=== PATIENT | male | born 1945 | race Caucasian/White ===

== ENCOUNTER → 2016-10-22 | Outpatient (CLI) | payer OTHER, MEDICARE | LOC: BHFA 08:30 | PROVIDERS: ATTEND Internal Medicine Cardiovascular Disease | DX: I25.10 Atherosclerotic heart disease of native coronary artery without angina pectoris (principal); I50.9 Heart failure, unspecified ==

== ENCOUNTER → 2016-11-26 | Outpatient (CLI) | payer OTHER, MEDICARE | LOC: BHFA 13:30 | PROVIDERS: ATTEND Internal Medicine Cardiovascular Disease | DX: I42.9 Cardiomyopathy, unspecified (principal); Z95.810 Presence of automatic (implantable) cardiac defibrillator ==

== ENCOUNTER 2016-12-15 11:00 | Observation (INO) | payer OTHER, MEDICARE ==
[2016-12-15] MEDS ORDERED: MIDAZOLAM 2 MG/2 ML VIAL IVP ONE (11:12)
[2016-12-15] MEDS ORDERED: NS 1,000 ML IV ONE (11:12)
--- NOTE | 2016-12-15 11:40 | CPEKG ---
Heart Rate: 69 RR Interval: 870 P-R Interval: 180 QRSD Interval: 128 QT Interval: 448 QTC Interval: 480 P [place]: -32 QRS [place]: -81 T Wave [place]: 86 EKG Severity - ABNORMAL ECG - EKG Impression: ATRIAL-SENSED VENTRICULAR-PACED RHYTHM Electronically Signed By: Cale Alamo 15-Dec-2016 11:50:31
[2016-12-15 11:59] LABS: % IMMATURE GRANULYOCYTES 0.3 % (0.0-1.1); ABSOLUTE IMMATURE GRANULOCYTES 0.02 10^3/uL (0.00-0.10); ADD DIFF? NO; ADD MORPH? NO; ADD SCAN? NO; ATYPICAL LYMPHOCYTE FLAG 50 (0-99); FRAGMENT RBC FLAG 0 (0-99); HEMATOCRIT 44.7 % (40.0-51.0); HEMOGLOBIN 14.1 g/dL (13.7-17.5); LEFT SHIFT FLG 0 (0-99); LIPEMIA HEMOLYSIS FLAG 80 (0-99); MEAN CELL HEMOGLOBIN 30.2 pg (27.9-34.1); MEAN CELL HEMOGLOBIN CONCENTR. 31.5 g/dL (32.4-36.7); MEAN CELL VOLUME 95.7 fL (81.5-99.8); MEAN PLATELET VOLUME 9.8 fL (8.7-11.7); PLATELET CLUMPS FLAG 0 (0-99); PLATELET COUNT 191 10^3/uL (150-400); RED BLOOD CELL COUNT 4.67 10^6/uL (4.40-6.38); RED CELL DISTRIBUTION WIDTH 13.9 % (11.5-15.2)
[2016-12-15 12:08] LABS: APTT 30.1 SEC (23.0-38.0); INR 1.15 (0.83-1.16); PROTIME(PATIENT) 14.6 SEC (12.0-15.0)
[2016-12-15 12:17] LABS: ANION GAP 12 mEq/L (8-16); CARBON DIOXIDE 28 mEq/l (22-31); CHLORIDE 101 mEq/L (97-110); CREATININE 1.6 mg/dL (0.7-1.3); GLOMERULAR FILTRATION RATE 43; GLUCOSE 101 mg/dL (70-100); POTASSIUM 4.2 mEq/L (3.5-5.2); SODIUM 141 mEq/L (134-144)
[2016-12-15] MEDS ORDERED: ROCURONIUM 100 MG/10 ML VIAL ONE (12:33)
[2016-12-15] MEDS ORDERED: PROPOFOL 200 MG/20 ML VIAL ONE (12:33)
[2016-12-15] MEDS ORDERED: fentaNYL 100 MCG/2 ML INJ ONE (12:33)
[2016-12-15] MEDS ORDERED: PHENYLEPHRINE HCL 100 MCG/ML SYR ONE (12:33)
[2016-12-15] MEDS ORDERED: LIDOCAINE 1% 300 MG/30 ML SDV ONE (12:35)
[2016-12-15] MEDS ORDERED: BUPIVACAINE 0.5% 30 ML SDV ONE (12:35)
[2016-12-15] MEDS ORDERED: HEPARIN 10,000 UNIT/10 ML MDV ONE ×2 (12:35→14:28)
[2016-12-15] MEDS ORDERED: ISOPROTERENOL HCL 0.2 MG/ML 5ML AMP ONE (12:35)
[2016-12-15] MEDS ORDERED: HEPARIN/DEXTROSE 25,000 UNIT/500 ML BAG ONE (13:33)
[2016-12-15] MEDS ORDERED: PHENYLEPHRINE 10 MG/ML SDV ONE (13:50)
[2016-12-15] MEDS ORDERED: ONDANSETRON 4 MG/2 ML VIAL ONE (17:10)
[2016-12-15] MEDS ORDERED: SUGAMMADEX SODIUM 200 MG/2 ML VIAL IVP ONE (17:10)
[2016-12-15] MEDS ORDERED: PROTAMINE SULFATE 50 MG/5 ML VIAL IVP ONE (17:19)
[2016-12-15] MEDS ORDERED: METOPROLOL TARTRATE 5 MG/5 ML INJ ONE (17:48)
[2016-12-15] MEDS ORDERED: ONDANSETRON 4 MG/2 ML VIAL IVP PRN (17:53)
[2016-12-15] MEDS ORDERED: METOPROLOL TARTRATE 5 MG/5 ML INJ IVP ONE (17:53)
[2016-12-15] MEDS ORDERED: fentaNYL 100 MCG/2 ML INJ IVP PRN (17:53)
[2016-12-15] MEDS ORDERED: NALOXONE HCL 0.4 MG/ML INJ IVP PRN (17:53)
[2016-12-15 19:08] LABS: ALANINE AMINOTRANSFERASE 23 IU/L (21-72); ALBUMIN 3.5 g/dL (3.5-5.0); ALKALINE PHOSPHATASE 58 IU/L (38-126); ANION GAP 10 mEq/L (8-16); ASPARTATE AMINOTRANSFERASE 60 IU/L (17-59); CALCIUM 8.3 mg/dL (8.5-10.4); CARBON DIOXIDE 25 mEq/l (22-31); CHLORIDE 106 mEq/L (97-110); CREATININE 1.5 mg/dL (0.7-1.3); GLOMERULAR FILTRATION RATE 46; GLUCOSE 93 mg/dL (70-100); POTASSIUM 4.1 mEq/L (3.5-5.2); SODIUM 141 mEq/L (134-144); TOTAL PROTEIN 7.9 g/dL (6.3-8.2)
[2016-12-15] MEDS ORDERED: ACETAMINOPHEN 325 MG TAB PO PRN (19:20)
[2016-12-15] MEDS ORDERED: OXYCODONE/APAP 5/325 TAB PO PRN (19:20)
--- NOTE | 2016-12-15 19:43 | EPPROC ---
Electrophysiology Procedure Note: ELECTROPHYSIOLOGIC STUDY AND CATHETER MEDIATED ABLATION OF SCAR ASSOCIATED VT Procedures performed: 31627 Arterial catheterization for monitoring during procedure 27780-01 EP evaluation with RA/RV/LA pace/record, with arrhythmia induction 50854-27 EP evaluation with RA/RV pace record, insert/reposition catheter, with arrhythmia induction 37231 Intracardiac catheter ablation, VT arrhythmogenic focus Fluoroscopy Reprogramming of BiV chamber ICD INDICATION: Sustained VT, ICD shocks x 2 Prior ablation at our institution in 11/2014 Cannot use amiodarone due to LFT elevation. Cannot use sotalol/dofetilide due to renal dysfunction. Flecainide ineffective. The patient arrived in the Electrophysiology Laboratory in the fasting state. The right clavicular region, right groin, and left groin area were prepped and draped in the usual sterile manner. Appropriate non-invasive blood pressure, pulse oximetry and end-tidal CO2 monitoring was established. Anesthesiologist administered anesthesia. All catheters were placed percutaneously using the modified Seldinger technique , and advanced into position under fluoroscopic guidance. One #8 [place] sheath was placed into the right femoral artery using modified Seldinger technique and was used for continuous arterial blood pressure monitoring and intermittent arterial blood gas determination and for retro aortic left ventricular access. Heparin was given to keep ACT >300 s. Programmed stimulation was performed. ICD therapies were programmed to off for the duration of the procedure . Post ablation he had upgrade to BiV ICD and ICD therapies were confirmed programmed on at end of procedure. This has been dictated separately. The patient arrived to the electrophysiology laboratory in A paced V paced rhythm. Programmed ventricular stimulation induced the following ventricular tachycardias: VT#1 CL 320 ms, V1-V5 positive, V6 biphasic, + in 2,3,F, + in I, - in aVL VT#2 CL 280 ms, + in I, - in aVL, QRS transition b.w. V2-V3, c.w. left outflow tract VT SBP decreased to 40mmHg on arterial line with VT and VT required defibrillation. A 3.5 mm irrigated Navistar SF ablation catheter (F curve) with a magnetic sensor for the Carto 3D electroanatomic mapping system was used for mapping. Pentaray catheter was also used. High resolution voltage mapping of the LV during sinus rhythm was undertaken. Low voltage areas were seen in the basal LV along anterolateral and lateral cruz. Ablation was limited to LV scar areas targeting early and mid diastolic potentials seen within the discrete scar. Scar was also seen along the distal LV outflow tract just under the aortic valve. Early and mid diastolic potentials were seen. Ablation was performed in this area as well. Pace mapping in this area was a 93-95% match for VT#2. Post ablation programmed stimulation was not done due to hemodynamic compromise with prior 2 episodes of VT. Protamine was administered. Arterial puncture was repaired with Angioseal. Patient left the EP lab in stable condition. CONCLUSIONS: 1. Scar related ventricular tachycardia. Non ischemic cardiomyopathy out of proportion to prior LAD stent. 2. Ablation along the basal left ventricle lateral and anterolateral areas, distal LV outflow tract just underneath aortic valve (left coronary cusp). 3. No apparent complications.
--- NOTE | 2016-12-15 20:19 | GOP ---
[f rep st] OPERATIVE REPORT DATE OF OPERATION: 12/15/2016 SURGEON: Med Ojeda MD ANESTHESIA: None. PREOPERATIVE DIAGNOSIS: Urinary retention. POSTOPERATIVE DIAGNOSIS: Urinary retention. PROCEDURE PERFORMED: Complicated catheter insertion. FINDINGS: INDICATIONS: The patient had a history of voiding dysfunction, especially around the time of proced ures. Two catheterization attempts by nursing staff were unsuccessful. Therefore, Urology was cons ulted. DESCRIPTION OF PROCEDURE: At the bedside, the penis was prepped and draped in a sterile fashion. A n 18-Greenlandic Coude catheter was guided with palpating any obstructions and maneuvering around them to successfully insert the catheter into the bladder. The urine was clear. 10 cc were placed in the balloon. The catheter was placed to a bedside bag. The plan will be for the patient to go home with this catheter and follow up with me as an outpatien t. COMPLICATIONS: None. DRAINS: 18-Greenlandic Coude catheter. /[id number]/MODL
[2016-12-15] MEDS ORDERED: NON-FORMULARY NEW DRUG (Ranitidine Hcl [Zantac] 150 MG) PO SCH (21:00)
[2016-12-15] MEDS ORDERED: PRAVASTATIN SODIUM 20 MG TAB PO SCH (21:00)
[2016-12-15 21:03] LABS: ANION GAP 8 mEq/L (8-16); CALCIUM 8.6 mg/dL (8.5-10.4); CARBON DIOXIDE 27 mEq/l (22-31); CHLORIDE 107 mEq/L (97-110); CREATININE 1.5 mg/dL (0.7-1.3); GLOMERULAR FILTRATION RATE 46; GLUCOSE 111 mg/dL (70-100); MAGNESIUM 1.9 mg/dL (1.6-2.3); POTASSIUM 4.3 mEq/L (3.5-5.2); SODIUM 142 mEq/L (134-144)
[2016-12-15] MEDS: CLOTRIMAZOLE 10 MG TROCHE PO SCH (21:35)
[2016-12-15] MEDS: FAMOTIDINE 20 MG TAB PO SCH (21:35)
[2016-12-15] MEDS: MEXILETINE HCL 200 MG CAP PO SCH (21:35)
[2016-12-16] MEDS ORDERED: CARVEDILOL 6.25 MG TAB PO ONE
[2016-12-16 04:55] LABS: % IMMATURE GRANULYOCYTES 0.3 % (0.0-1.1); ABSOLUTE IMMATURE GRANULOCYTES 0.02 10^3/uL (0.00-0.10); ADD DIFF? NO; ADD MORPH? NO; ADD SCAN? NO; ATYPICAL LYMPHOCYTE FLAG 30 (0-99); FRAGMENT RBC FLAG 0 (0-99); HEMATOCRIT 39.8 % (40.0-51.0); HEMOGLOBIN 12.6 g/dL (13.7-17.5); LEFT SHIFT FLG 0 (0-99); LIPEMIA HEMOLYSIS FLAG 80 (0-99); MEAN CELL HEMOGLOBIN 30.1 pg (27.9-34.1); MEAN CELL HEMOGLOBIN CONCENTR. 31.7 g/dL (32.4-36.7); MEAN PLATELET VOLUME 9.9 fL (8.7-11.7); PLATELET CLUMPS FLAG 0 (0-99); PLATELET COUNT 158 10^3/uL (150-400); RED BLOOD CELL COUNT 4.19 10^6/uL (4.40-6.38); RED CELL DISTRIBUTION WIDTH 13.9 % (11.5-15.2)
[2016-12-16 04:59] LABS: INR 1.21 (0.83-1.16); PROTIME(PATIENT) 15.3 SEC (12.0-15.0)
[2016-12-16 05:28] LABS: ANION GAP 7 mEq/L (8-16); CALCIUM 8.4 mg/dL (8.5-10.4); CARBON DIOXIDE 27 mEq/l (22-31); CHLORIDE 107 mEq/L (97-110); CREATININE 1.4 mg/dL (0.7-1.3); GLOMERULAR FILTRATION RATE 50; GLUCOSE 92 mg/dL (70-100); POTASSIUM 4.5 mEq/L (3.5-5.2); SODIUM 141 mEq/L (134-144)
[2016-12-16 05:40] LABS: CK-MB INTERPRETATION POSITIVE (NEGATIVE)
[2016-12-16] MEDS ORDERED: LEVOTHYROXINE 125 MCG TAB PO SCH (06:00)
[2016-12-16] MEDS: MEXILETINE HCL 200 MG CAP PO SCH (06:22)
[2016-12-16] MEDS: CLOTRIMAZOLE 10 MG TROCHE PO SCH ×2 (06:23→09:14)
[2016-12-16 07:44] VITALS: TEMP 98.6
[2016-12-16] MEDS ORDERED: CARVEDILOL 6.25 MG TAB PO SCH (08:00)
[2016-12-16] MEDS: FAMOTIDINE 20 MG TAB PO SCH (08:40)
--- NOTE | 2016-12-16 08:47 | CPEKG ---
Heart Rate: 60 RR Interval: 1000 P-R Interval: 176 QRSD Interval: 134 QT Interval: 472 QTC Interval: 472 P [place]: -41 QRS [place]: -79 T Wave [place]: 92 EKG Severity - ABNORMAL ECG - EKG Impression: ATRIAL-SENSED VENTRICULAR-PACED COMPLEXES Electronically Signed By: Cale Alamo 16-Dec-2016 09:05:32
[2016-12-16] MEDS ORDERED: LISINOPRIL 5 MG TAB PO SCH (09:00)
[2016-12-16] MEDS ORDERED: CHOLECALCIFEROL VIT D3 1,000 UNITS TAB PO SCH (09:00)
[2016-12-16] MEDS ORDERED: ASPIRIN 325 MG TAB PO SCH (09:00)
[2016-12-16 09:16] VITALS: PULSE 61
--- NOTE | 2016-12-16 09:25 | ECHO ---
[id number] + + [id number] : : [place] [address] : : [phone] + + Adult Echocardiographic Report + ----+ :Name: WALTER MASTERS RStudy Date: 12/16/2016 07:50 AM : : Hospital Admission Number: [id number] Location: 255: :: 1945 Gender: Male Height: 72 in : :Age: 71 yrs Race: WH Weight: 175 lb : :Reason For Study: Eval LV Fx : : BSA: 2.0 meters2 : :History: Post Ablation, Pacemaker : + ----+ MMode/2D Measurements \T\ Calculations IVSd: 1.2 cm LVIDd: 6.1 cm FS: 15.6 % Ao root diam: LVPWd: 1.2 cm LVIDs: 5.1 cm EDV(Teich): 3.1 cm 185.2 ml ACS: 2.2 cm ESV(Teich): 125.4 ml EF(Teich): 32.3 % LVLd ap4: 8.8 cm SV(MOD-sp4): EDV(MOD-sp4): 54.0 ml 130.0 ml LVLs ap4: 7.8 cm ESV(MOD-sp4): 76.0 ml EF(MOD-sp4): 41.5 % Normal Measurement Values: + + :LVIDd (3.5-5.7cm) IVSd (0.6-1.1cm) LVPWd (0.6-1.1cm) Aortic Root (2.0-3.7cm)Left Atrium (1.5-4.0cm): :LV Vol(d) (76-115ml) LV Vol(s) (29-48ml) Ejec Fraction (50-65%)PV Clarence (0.6- 1.2m/s) TV Clarence (0.4-1.0m/s) : :MV E Clarence (0.8-1.0m/s)MV A Clarence (0.3-1.0m/s)LVOT Clarence (0.7-1.2m/s) Asc Ao Clarence ( 0.9-1.8m/s) : + + Doppler Measurements \T\ Calculations MV E max clarence: Ao V2 max: AI max clarence: LV V1 max: 39.5 cm/sec 100.4 cm/sec 270.1 cm/sec 65.6 cm/sec MV A max clarence: Ao max PG: AI max P.7 mmHg LV V1 max P.3 cm/sec 4.0 mmHg AI dec slope: 1.7 mmHg MV E/A: 0.70 124.3 cm/sec2 AI P1/2t: 636.4 msec MR max clarence: PA V2 max: TR max clarence: 297.9 cm/sec 73.3 cm/sec 301.3 cm/sec MR max PG: PA max PG: TR max P.3 mmHg 35.6 mmHg 2.1 mmHg RAP systole: 5.0 mmHg RVSP(TR): 41.3 mmHg Left Ventricle The left ventricle is mildly dilated. There is normal left ventricular wall thickness. There is Doppler evidence for diastolic dysfunction. Ejection Fraction = 40%. There is basilar inferolateral and basialr to mid inferior hypokinesis. Right Ventricle There is a pacemaker lead in the right ventricle. The right ventricle is normal in size and function. Atria The left atrial size is normal. Right atrial size is normal. Mitral Valve The mitral valve is normal. There is no evidence of mitral valve prolapse. There is no mitral valve stenosis. There is mild mitral regurgitation. Tricuspid Valve Normal tricuspid valve. Right ventricular systolic pressure is 41mmHg. There is Doppler evidence for mild pulmonary hypertension. Aortic Valve There is mild aortic valve calcification. There is no aortic stenosis. Trace to mild aortic regurgitation. Pulmonic Valve The pulmonic valve is normal in structure and function. There is no pulmonic valvular regurgitation. Great Vessels The aortic root is normal size. Pericardium/Pleural There is no pericardial effusion. Conclusion A complete two-dimensional transthoracic echocardiogram was performed (2D, M-mode, Doppler and color flow Doppler). The left ventricle is mildly dilated. There is Doppler evidence for diastolic dysfunction. There is basilar inferolateral and basialr to mid inferior hypokinesis. There is a pacemaker lead in the right ventricle. The mitral valve is normal. There is mild mitral regurgitation. Right ventricular systolic pressure is 41mmHg. There is Doppler evidence for mild pulmonary hypertension. There is mild aortic valve calcification. Trace to mild aortic regurgitation. There is no pericardial effusion. LV Ejection Fraction = 40%. Final Reading Physician: Cale Alamo MD electronically signed on 12/16/2016 09:24 AM Ordering Physician: Cale Alamo Performed By: Jakub Green, CS
[2016-12-16] MEDS ORDERED: APIXABAN 2.5 MG TAB PO SCH (09:45)
[2016-12-16 10:08] VITALS: BP 129/63; RESP 12; O2SAT 97
--- NOTE | 2016-12-17 00:08 | GDS ---
[f rep st] DISCHARGE SUMMARY DISCHARGE DIAGNOSES: 1. Nonischemic cardiomyopathy. 2. Biventricular ICD. 3. Nonsustained ventricular tachycardia. 4. Pulmonary hypertension. 5. Valvular heart disease. 6. Coronary artery disease. BRIEF HISTORY: This is a 71-year-old man with history of nonischemic cardiomyopathy with prior EF of 30% and previous biventricular ICD implanted, pulmonary hypertension, CAD prior LAD stent in 2003, moderate MR and TR, prior VT ablation November 2014. He has experienced recurrent VT with subsequent ICD shocks. He was already taking mexiletine and cannot take amiodarone due to elevated LFTs. He was admitted for VT ablation. He did hold his mexiletine 2 days prior to the EP study. HOSPITAL COURSE: Dr. Alamo performed the VT ablation along the basal left ventricular lateral and anterior lateral areas, distal LV outflow track just underneath the aortic valve. The patient did well overnight without any further VT. He denies any kind of chest pain, shortness of breath, or pain at his groin sites. HOSPITAL TESTING: Echocardiogram demonstrated mild MR, trace to mild AI, RVSP of 41 mmHg, ejection fraction 40%, and no pericardial effusion. LABORATORY DATA: WBC is 6.89, hemoglobin 12.6, hematocrit 39.8, platelets 158. PT 15.3, INR 1.21. Sodium 141, potassium 4.5, chloride 107, bicarb 27, BUN 22 , creatinine 1.4, glucose 92. CK-MB 16.5, CK-MB percent 11.3, troponin 4.35. PHYSICAL EXAMINATION: VITAL SIGNS: Blood pressure is 129/63, heart rate is 61 , respirations 12, temperature 37, O2 saturation 97% on room air. GENERAL: He is alert and oriented, in no acute distress, sitting up in bed. CARDIAC: Regular rate and rhythm with a 1/6 systolic ejection murmur at the left sternal border. LUNGS: Clear to auscultation. ABDOMEN: Soft and nontender. EXTREMITIES: Warm. No discoloration. No lower extremity edema. GROIN: Sites are without bleeding or hematoma. DISCHARGE INSTRUCTIONS: Patient was given written and verbal instructions with activity restrictions post ablation. DISCHARGE MEDICATIONS: He will continue his home medications. Of note, Eliquis 2.5 mg p.o. b.i.d. was added. He was instructed to take this for 1 month post ablation. He will continue his aspirin due to his coronary disease. FOLLOWUP: He has followup with Dr. Alamo on January 28 at 4 o'clock. /[id number]/MODL MTDD
[2016-12-17] MEDS ORDERED: FUROSEMIDE 20 MG TAB PO SCH (09:00)
== END 2016-12-16 11:23 | disposition home or self-care (01) ==
LOC: FCATH 11:00 → F2N 17:45 → INTOOBSV 17:45
PROVIDERS: ADMIT Internal Medicine Cardiovascular Disease; ATTEND Internal Medicine Cardiovascular Disease
PROC: 02JA3ZZ Inspection of Heart, Percutaneous Approach (ICD-10-PCS; principal; 2016-12-15)
PROC: 025L3ZZ Destruction of Left Ventricle, Percutaneous Approach (ICD-10-PCS; principal; 2016-12-15)
PROC: 02K83ZZ Map Conduction Mechanism, Percutaneous Approach (ICD-10-PCS; principal; 2016-12-15)
PROC: 0T9B70Z Drainage of Bladder with Drainage Device, Via Natural or Artificial Opening (ICD-10-PCS; 2016-12-15)
DX: I47.2 Ventricular tachycardia (principal); I42.9 Cardiomyopathy, unspecified; I27.2 Other secondary pulmonary hypertension; I25.10 Atherosclerotic heart disease of native coronary artery without angina pectoris; I08.1 Rheumatic disorders of both mitral and tricuspid valves; R33.9 Retention of urine, unspecified; Z95.5 Presence of coronary angioplasty implant and graft; Z95.810 Presence of automatic (implantable) cardiac defibrillator
CPT/HCPCS: 93005; 93306; 93654; C1731; C1732; C1760; J1644; J2370; J2405; J2704; J2720; J3010

== ENCOUNTER → 2017-01-28 | Outpatient (CLI) | payer OTHER, MEDICARE | LOC: BHFA 16:00 | PROVIDERS: ATTEND Internal Medicine Cardiovascular Disease | DX: I42.9 Cardiomyopathy, unspecified (principal); I47.2 Ventricular tachycardia; Z95.810 Presence of automatic (implantable) cardiac defibrillator ==

== ENCOUNTER 2017-02-05 07:10 | Day surgery (SDC) | payer OTHER, MEDICARE ==
--- NOTE | 2017-02-05 07:48 | PDGENHP ---
History & Physical Chief Complaint: dysphagia, hx of tongue radiation History of Present Illness: dysphagia, previous response to dilation Pertinent Past, Social, Family History: VTach Relevant Physical Exam: NAD Cardiorespiratory Assessment: ctab. normal rate
[2017-02-05] MEDS ORDERED: LR 1,000 ML IV ONE (07:52)
[2017-02-05 08:17] VITALS: PULSE 69; RESP 16
[2017-02-05 08:37] LABS: ANION GAP 9 mEq/L (8-16); CALCIUM 8.9 mg/dL (8.5-10.4); CARBON DIOXIDE 27 mEq/l (22-31); CHLORIDE 103 mEq/L (97-110); CREATININE 1.7 mg/dL (0.7-1.3); GLOMERULAR FILTRATION RATE 40; GLUCOSE 104 mg/dL (70-100); POTASSIUM 4.1 mEq/L (3.5-5.2); SODIUM 139 mEq/L (134-144)
--- NOTE | 2017-02-05 08:42 | PDANEPAE ---
ANE History of Present Illness barrets esophagus ANE Past Medical History - Cardiovascular History Hx Hypertension: Yes Hx Arrhythmias: Yes Hx Chest Pain: No Hx Coronary Artery / Peripheral Vascular Disease: Yes Hx CHF / Valvular Disease: No Hx Palpitations: No Cardiovascular History Comment: hx of vtach- killed him 2009. hyperlipidemia - Pulmonary History Hx COPD: No Hx Asthma/Reactive Airway Disease: No Hx Recent Upper Respiratory Infection: No Hx Oxygen in Use at Home: Yes O2 in Use at Home (L/minute): 2l at noc Hx Sleep Apnea: Yes Sleep Apnea Screening Result - Last Documented: Positive Pulmonary History Comment: central sleep apnea. current cough with some blood tinged sputum - Neurologic History Hx Cerebrovascular Accident: No Hx Seizures: No Hx Dementia: No - Endocrine History Hx Diabetes: No Endocrine History Comment: hypothyroidism - Renal History Hx Renal Disorders: Yes Renal History Comment: hx of right nephrectomy. UDS procedure done 02/03/17. recently taken off furosemide d/t creatinine levels. enlarged prostate. urinary retention d/t increase in creatinine - Liver History Hx Hepatic Disorders: No - Neurological & Psychiatric Hx Hx Neurological and Psychiatric Disorders: No - Cancer History Hx Cancer: Yes Cancer History Comment: tongue ca- chemo, radiation and feeding tube placed. renal ca- with nephrectomy - Congenital Disorder History Hx Congenital Disorders: No - GI History Hx Gastrointestinal Disorders: Yes Gastrointestinal History Comment: reflux. barretts esophagus. throat is sore currently - Other Health History Other Health History: wears glasses. sun spots- pattern molder removes - Chronic Pain History Chronic Pain: No - Surgical History Prior Surgeries: 2017 cardiac ablation. 2016 cardiac ablation x2. right knee surgery 2016. 2015 pacemaker placed. 2014 icd. 2004 cardiac stent. right nephrectomy d/t renal ca. g tube placed when he had tongue ca. lucas. left knee surgery- meniscus tear. ing hernia repair. tonsillectomy. ANE Review of Systems - Exercise capacity Exercise capacity: >=4 METS METS (RN): 4 METS - Pacemaker Pacemaker Type: Permanent Pacer/Defib Pacemaker Pbx Inspector: Medtronic Pacemaker Model: Viva Quad XT ZUMBA INSTRUCTOR-D Pacemaker Mode: DDDR Pacemaker Set Rate: 60 Date Pacemaker Last Checked: 12/09/16 ANE Patient History - Allergies Allergies/Adverse Reactions: Sulfa (Sulfonamide Antibiotics) [Sulfa(Sulfonamide Antibiotics)] Allergy ( Unknown, Verified 02/03/17 16:05) Unknown ciprofloxacin Allergy (Verified 02/04/17 18:06) Other-Enter Comments - Home Medications Home Medications: Levothyroxine [Synthroid 125 mcg (*)] 11/30/14 [Last Taken 02/05/17 06:00] Acetaminophen [Tylenol ES 500 mg (*)] 12/15/16 [Last Taken 01/22/17] Carvedilol [Coreg (*)] 12/15/16 [Last Taken 02/05/17 06:00] Lisinopril [Zestril 5 mg (*)] 12/15/16 [Last Taken 02/05/17 06:00] Pravastatin Sodium 12/15/16 [Last Taken 02/04/17 22:00] Ranitidine HCl [Zantac] 12/15/16 [Last Taken 02/04/17 08:00] Amiodarone HCl 02/03/17 [Last Taken 02/04/17 18:00] Aspirin [Aspirin 325 mg (*)] 02/03/17 [Last Taken 02/03/17] Mexiletine HCl [Mexitil] 02/03/17 [Last Taken 02/05/17 06:00] Tamsulosin HCl 02/03/17 [Last Taken 02/04/17 12:00] Vitamin D3 2000 units tab (OTC) 02/03/17 [Last Taken 02/04/17 08:00] Magnesium 02/04/17 [Last Taken 02/04/17 12:00] - NPO status NPO Status: no food or drink >8 hours NPO Since - Liquids (Date): 02/04/17 NPO Since - Liquids (Time): 20:45 NPO Since - Solids (Date): 02/04/17 NPO Since - Solids (Time): 22:00 - Anes Hx Anes Hx: no prior problems - Smoking Hx Smoking Status: Never smoked - Family Anes Hx Family Hx Anesthesia Complications: none ANE Labs/Vital Signs - Labs Result Diagrams: 02/05/17 08:10 - Vital Signs Blood Pressure: 151/92 Heart Rate: 69 Respiratory Rate: 16 O2 Sat (%): 96 Height: 182.88 cm Weight: 77.111 kg ANE Physical Exam - Airway Neck exam: FROM Mallampati Score: Class 2 Mouth exam: normal dental/mouth exam - Pulmonary Pulmonary: no respiratory distress - Cardiovascular Cardiovascular: regular rate and rhythym - ASA Status ASA Status: IV ANE Anesthesia Plan Anesthesia Plan: GA with mask
[2017-02-05] MEDS ORDERED: PROPOFOL/EMULSION 500 MG/50 ML BOTTLE IV ONE (08:46)
[2017-02-05] MEDS ORDERED: LIDOCAINE 2% 5 ML SDV ONE (08:46)
[2017-02-05] MEDS ORDERED: NALOXONE HCL 0.4 MG/ML INJ IVP PRN (09:03)
[2017-02-05] MEDS ORDERED: ONDANSETRON 4 MG/2 ML VIAL IVP PRN (09:03)
[2017-02-05] MEDS ORDERED: fentaNYL 100 MCG/2 ML INJ IVP PRN (09:03)
[2017-02-05 10:14] VITALS: TEMP 97.7
[2017-02-05 10:38] VITALS: BP 175/94; O2SAT 95
--- NOTE | 2017-02-05 13:40 | POSTANESTH ---
Post Anesthetic Evaluation Cardiovascular Status: Normal, Stable Respiratory Status: Normal, Stable Level of Consciousness/Mental Status: Can Participate in Eval Pain Control: Adequate, Prn Tx Ordered Nausea/Vomiting Control: Adequate, Prn Tx Ordered Complications Possibly Related to Anesthesia: None Noted
--- NOTE | 2017-02-05 15:28 | GPN ---
[f rep st] PROCEDURE NOTE DATE OF PROCEDURE: 02/05/2017 PROCEDURE: Esophagogastroduodenoscopy with biopsy and dilation. INDICATION: This is a 71-year-old male with history of radiation to the base of his tongue, who has dysphagia, previously responsive to dilation. CONSENT: Informed consent was obtained from the patient after a thorough explanation of risks, benefits, and alternatives to the procedure. MEDICATIONS GIVEN: Per Anesthesia. COMPLICATIONS: None. ESTIMATED BLOOD LOSS: Minimal. DESCRIPTION OF PROCEDURE: After adequate sedation was achieved, the endoscope was advanced easily under direct vision through the oropharynx and as far as the 2nd portion of the duodenal. Retroflexion was performed in the stomach. The views were good throughout. Patient tolerance was good. No cardiac arrhythmias were encountered. FINDINGS: 1. Esophagus: The midesophagus was notable for Barrow Grade C esophagitis. This did not extend down to the GE junction and primarily involved from 34-38 cm of scope insertion. Biopsies were performed to assess for any atypical etiologies. The GE junction had irregular Z line, and biopsies were obtained to rule out Will's esophagus. A balloon was inflated at the level of the GE junction to 19 mm, and slowly brought up through the esophagus. An esophageal stricture was encountered in the proximal esophagus, and this was dilated over approximately 30 seconds with a good response. 2. Stomach: There was significant gastritis with some linear areas of erosion/ hemorrhage. Biopsies were obtained to rule out H pylori or assess for other etiology. There were no ulcerations. There were no other mucosal abnormalities. Most of gastritis was in the body of the stomach with some involving the antrum. 3. Duodenum: The duodenum appeared normal. IMPRESSION: Endoscopy with dilation of a stricture in the proximal esophagus, along with biopsies of grade C midesophagus esophagitis, GE junction irregularity, and gastritis in the stomach. RECOMMENDATIONS: 1. Resume aspirin tomorrow. 2. Resume other medications today. 3. Resume regular diet. 4. Repeat dilation p.r.n. 5. Recommend omeprazole 40 mg daily group home, given significant gastritis and esophagitis was present. This may also reduce the frequency of recurrent dysphagia. 6. Await biopsy results. We will call with these results. 7. Follow up as scheduled with Dr. Lombardo. /[id number]/MODL MTDD
== END 2017-02-05 10:35 | disposition home or self-care (01) ==
LOC: FSGY 07:10
PROVIDERS: ATTEND Internal Medicine
PROC: 0DB48ZX Excision of Esophagogastric Junction, Via Natural or Artificial Opening Endoscopic, Diagnostic (ICD-10-PCS; principal; 2017-02-05 08:30)
PROC: 0D748ZZ Dilation of Esophagogastric Junction, Via Natural or Artificial Opening Endoscopic (ICD-10-PCS; principal; 2017-02-05 08:30)
PROC: 0DB68ZX Excision of Stomach, Via Natural or Artificial Opening Endoscopic, Diagnostic (ICD-10-PCS; principal; 2017-02-05 08:30)
DX: K22.70 Barrett's esophagus without dysplasia (principal); R13.10 Dysphagia, unspecified; K29.70 Gastritis, unspecified, without bleeding; K20.9 Esophagitis, unspecified; Z85.810 Personal history of malignant neoplasm of tongue
CPT/HCPCS: 43239; 43245; C1726; J2704

== ENCOUNTER → 2017-03-18 | Outpatient (CLI) | payer OTHER, MEDICARE | LOC: FIMAGING 16:57 | PROVIDERS: ATTEND Internal Medicine Cardiovascular Disease | DX: M79.662 Pain in left lower leg (principal) ==

== ENCOUNTER 2017-05-21 05:56 | Day surgery (SDC) | payer OTHER, MEDICARE ==
[2017-05-21] MEDS ORDERED: LR 1,000 ML IV ONE (06:05)
[2017-05-21] MEDS ORDERED: LIDOCAINE 2% JELLY 20 ML (UROJECT) ONE (06:48)
--- NOTE | 2017-05-21 06:57 | PDANEPAE ---
ANE History of Present Illness green light laser ANE Past Medical History - Cardiovascular History Hx Hypertension: Yes Hx Arrhythmias: Yes Hx Chest Pain: No Hx Coronary Artery / Peripheral Vascular Disease: Yes Hx CHF / Valvular Disease: No Hx Palpitations: No Cardiovascular History Comment: hx of v-tach- full core 2009. hyperlipidemia - Pulmonary History Hx COPD: No Hx Asthma/Reactive Airway Disease: No Hx Recent Upper Respiratory Infection: No Hx Oxygen in Use at Home: Yes O2 in Use at Home (L/minute): 2 Hx Sleep Apnea: No Sleep Apnea Screening Result - Last Documented: Positive Pulmonary History Comment: central sleep apnea. OCCASIONAL cough with some blood tinged sputum - Neurologic History Hx Cerebrovascular Accident: No Hx Seizures: No Hx Dementia: No - Endocrine History Hx Diabetes: No Endocrine History Comment: hypothyroidism - Renal History Hx Renal Disorders: Yes Renal History Comment: hx of right nephrectomy. UDS procedure done 02/03/17. recently taken off furosemide d/t creatinine levels. enlarged prostate. 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 1994 renal ca- with nephrectomy - Congenital Disorder History Hx Congenital Disorders: No - GI History Hx Gastrointestinal Disorders: Yes Gastrointestinal History Comment: reflux. barretts esophagus. - Other Health History Other Health History: wears glasses. sun spots- [employer] officer removes - Chronic Pain History Chronic Pain: No - Surgical History Prior Surgeries: ESOPHAGEAL DILATION 01/2017. 2016 cardiac ablation. 2016 cardiac ablation x2. right knee surgery 2016. 2014 pacemaker placed. 2013 icd. 2003 cardiac stent. right nephrectomy d/t renal ca. g tube placed when he had tongue ca. lucas. left knee surgery- meniscus tear. ing hernia repair. tonsillectomy. ANE Review of Systems Review of systems is: negative Review of Systems: - Exercise capacity Exercise capacity: >=4 METS METS (RN): 4 METS - Pacemaker Pacemaker Type: Permanent Pacer/Defib Pacemaker Sustainability Communicator: Medtronic Pacemaker Set Rate: 70 Date Pacemaker Last Checked: 03/17/2017 ANE Patient History - Allergies Allergies/Adverse Reactions: Sulfa (Sulfonamide Antibiotics) [Sulfa(Sulfonamide Antibiotics)] Allergy ( Unknown, Verified 02/03/17 16:05) Unknown ciprofloxacin Allergy (Verified 02/04/17 18:06) Other-Enter Comments midazolam [From Versed] Allergy (Verified 05/21/17 06:21) versed Allergy (Uncoded 05/21/17 06:21) - Home Medications Home medications: home medication list seen and reviewed Home Medications: Levothyroxine [Synthroid 125 mcg (*)] DAILY06 11/30/14 [Last Taken 05/20/17] Acetaminophen [Tylenol ES 500 mg (*)] PO PRN 12/15/16 [Last Taken 05/20/17] Carvedilol [Coreg (*)] BID 12/15/16 [Last Taken 05/21/17] Lisinopril [Zestril 5 mg (*)] 10 DAILY06 12/15/16 [Last Taken 05/21/17] Pravastatin Sodium HS 12/15/16 [Last Taken 05/20/17] Ranitidine HCl [Zantac] DAILY06 12/15/16 [Last Taken 05/21/17] Amiodarone HCl 400 BID 02/03/17 [Last Taken 05/21/17] Aspirin [Aspirin 325 mg (*)] DAILY 02/03/17 [Last Taken 05/14/17] Mexiletine HCl [Mexitil] TID 02/03/17 [Last Taken 05/20/17] Tamsulosin HCl 0.4 02/03/17 [Last Taken 05/20/17] Vitamin D3 2000 units tab (OTC) DAILY 02/03/17 [Last Taken 05/20/17] Dutasteride 05/08/17 [Last Taken 05/20/17] Omeprazole 40 PO 05/08/17 [Last Taken 05/20/17] - NPO status NPO Status: no food or drink >8 hours NPO Since - Liquids (Date): 05/21/17 NPO Since - Liquids (Time): 06:00 NPO Since - Solids (Date): 05/20/17 NPO Since - Solids (Time): 18:30 - Anes Hx Anes Hx: no prior problems - Smoking Hx Smoking Status: Never smoked - Family Anes Hx Family Anes Hx: none Family Hx Anesthesia Complications: none ANE Labs/Vital Signs - Vital Signs Blood Pressure: 186/82 Heart Rate: 82 Respiratory Rate: 18 O2 Sat (%): 97 Height: 182.88 cm Weight: 77.564 kg ANE Physical Exam - Airway Neck exam: FROM Mallampati Score: Class 1 Mouth exam: normal dental/mouth exam - Pulmonary Pulmonary: no respiratory distress - Cardiovascular Cardiovascular: regular rate and rhythym - ASA Status ASA Status: III ANE Anesthesia Plan Anesthesia Plan: general endotracheal anesthesia
[2017-05-21] MEDS ORDERED: ceFAZolin 2 GM/DEXTROSE 100 ML IV ONE (07:08)
[2017-05-21] MEDS ORDERED: ceFAZolin 2 GM in D5W 100 ML IV ONE (07:11)
[2017-05-21] MEDS ORDERED: ONDANSETRON 4 MG/2 ML VIAL ONE (07:15)
[2017-05-21] MEDS ORDERED: DEXAMETHASONE 4 MG/ML VIAL ONE (07:15)
[2017-05-21] MEDS ORDERED: PROPOFOL 200 MG/20 ML VIAL ONE (07:15)
[2017-05-21] MEDS ORDERED: ROCURONIUM 50 MG/5 ML VIAL ONE (07:15)
[2017-05-21] MEDS ORDERED: fentaNYL 100 MCG/2 ML INJ ONE (07:15)
[2017-05-21] MEDS ORDERED: LIDOCAINE 2% 100 MG/5 ML SYR ONE (07:15)
[2017-05-21] MEDS ORDERED: ceFAZolin 2 GM/SWFI 2 GM/20 ML SYR IVP ONE (07:30)
[2017-05-21] MEDS ORDERED: HYDROmorphONE/DILAUDID 1 MG/ML INJ IVP PRN (08:15)
[2017-05-21] MEDS ORDERED: fentaNYL 100 MCG/2 ML INJ IVP PRN (08:15)
[2017-05-21] MEDS ORDERED: OXYCODONE/APAP 5/325 TAB PO PRN (08:15)
[2017-05-21] MEDS ORDERED: MEPERIDINE 25 MG/ML SYR IVP PRN (08:15)
[2017-05-21] MEDS ORDERED: ONDANSETRON 4 MG/2 ML VIAL IVP PRN (08:15)
[2017-05-21] MEDS ORDERED: PROMETHAZINE HCL 25 MG/ML INJ IVP PRN (08:15)
[2017-05-21] MEDS ORDERED: ACETAMINOPHEN 500 MG TAB PO PRN (08:15)
[2017-05-21] MEDS ORDERED: HYDROCODONE/APAP 5/325 TAB PO PRN (08:15)
[2017-05-21] MEDS ORDERED: NALOXONE HCL 0.4 MG/ML INJ IVP PRN (08:15)
[2017-05-21] MEDS ORDERED: DEXAMETHASONE 4 MG/ML VIAL IVP PRN (08:15)
--- NOTE | 2017-05-21 08:17 | POSTANESTH ---
Post Anesthetic Evaluation Cardiovascular Status: Similar to Pre-Op Cond Respiratory Status: Similar to Pre-op Cond. Level of Consciousness/Mental Status: Can Participate in Eval, Mildly Sleepy, Arousable Pain Control: Adequate, Prn Tx Ordered Nausea/Vomiting Control: Adequate, Prn Tx Ordered Complications Possibly Related to Anesthesia: None Noted
--- NOTE | 2017-05-21 09:08 | POSTOPPROG ---
Post Op Note Date of Operation: 05/21/17 Surgeon: Al Ojeda Anesthesia: GET(General Endotracheal) ([id number]) Inf/Abcess present in the surg proc area at time of surgery?: No
--- NOTE | 2017-05-21 09:20 | GOP ---
[f rep st] OPERATIVE REPORT DATE OF OPERATION: 05/21/2017 SURGEON: Med Ojeda MD ANESTHESIA: General. PREOPERATIVE DIAGNOSIS: Prostate hypertrophy and bladder outlet obstruction. POSTOPERATIVE DIAGNOSIS: Prostate hypertrophy and bladder outlet obstruction. PROCEDURE PERFORMED: GreenLight photo vaporization of prostate. FINDINGS: ESTIMATED BLOOD LOSS: Minimal DESCRIPTION OF PROCEDURE: Patient was taken to the operating room. General anesthesia was induced. The patient was placed in a dorsal lithotomy position, prepped and draped in a sterile fashion. The continuous-flow resectoscope with the laser sheath was inserted through the patient's urethra into t he patient's bladder. The bladder showed trabeculation. No urothelial defects, masses or stones. The GreenLight fiber was inserted, and photo vaporization was carried out, taking down the median bal l valving lobe first, then lateral lobes, taking great care to avoid lasering beyond the verumontanum . Some small amount of residual tissue was left at the verumontanum because of the patient's very hi gh-pressure voiding. Total number of joules were used was 277,216. At the end of the case, a 20-Slovenian 2-way Cunningham catheter is inserted without difficulty. The effluen t was clear. The patient was returned to the supine position and was being prepared for extubation a t the time of this dictation. COMPLICATIONS: None. DRAINS: A 20-Slovenian 2-way Cunningham catheter. /[id number]/MODL
[2017-05-21] MEDS ORDERED: LABETALOL HCL 5 MG/ML 20 ML MDV ONE (09:24)
[2017-05-21] MEDS: LABETALOL HCL 5 MG/ML 20 ML MDV IVP PRN ×3 (09:27→09:50)
[2017-05-21 09:48] VITALS: TEMP 97
[2017-05-21 09:51] VITALS: PULSE 61
[2017-05-21] MEDS ORDERED: hydrALAZINE 20 MG/ML VIAL ONE (10:09)
[2017-05-21] MEDS ORDERED: hydrALAZINE 20 MG/ML VIAL IVP PRN (10:11)
[2017-05-21 10:33] VITALS: RESP 16
[2017-05-21 11:23] VITALS: O2SAT 94
[2017-05-21 12:36] VITALS: BP 153/78
== END 2017-05-21 12:53 | disposition home or self-care (01) ==
LOC: FSGY 05:56
PROVIDERS: ATTEND Specialist
PROC: 0V508ZZ Destruction of Prostate, Via Natural or Artificial Opening Endoscopic (ICD-10-PCS; principal; 2017-05-21 07:15)
DX: N40.1 Benign prostatic hyperplasia with lower urinary tract symptoms (principal); R33.8 Other retention of urine; I10 Essential (primary) hypertension; I73.9 Peripheral vascular disease, unspecified; E78.5 Hyperlipidemia, unspecified; E03.9 Hypothyroidism, unspecified; K21.9 Gastro-esophageal reflux disease without esophagitis; Z95.0 Presence of cardiac pacemaker; Z95.810 Presence of automatic (implantable) cardiac defibrillator; Z90.5 Acquired absence of kidney; Z85.528 Personal history of other malignant neoplasm of kidney; Z85.810 Personal history of malignant neoplasm of tongue
CPT/HCPCS: J0360; J0690; J1100; J2001; J2405; J2704; J3010; J3490

== ENCOUNTER → 2017-09-08 | Outpatient (CLI) | payer OTHER, MEDICARE | LOC: BHFA 14:00 | PROVIDERS: ATTEND Internal Medicine Cardiovascular Disease | DX: R07.9 Chest pain, unspecified (principal); R06.02 Shortness of breath ==

== ENCOUNTER → 2017-10-01 | Outpatient (CLI) | payer OTHER, MEDICARE | LOC: BHLMT 13:30 | PROVIDERS: ATTEND Internal Medicine Cardiovascular Disease | DX: I25.10 Atherosclerotic heart disease of native coronary artery without angina pectoris (principal) | CPT/HCPCS: 78452; 93017; A9500; J2785 ==

== ENCOUNTER → 2018-03-15 | Outpatient (CLI) | payer OTHER, MEDICARE | LOC: BHFA 08:00 | PROVIDERS: ATTEND Internal Medicine Cardiovascular Disease | DX: Z13.6 Encounter for screening for cardiovascular disorders (principal) | CPT/HCPCS: 78472; A9560 ==

== ENCOUNTER 2018-03-24 06:28 | Day surgery (SDC) | payer OTHER, MEDICARE ==
[2018-03-24] MEDS ORDERED: LIDOCAINE 1% 2 ML INJ ID PRN (06:43)
[2018-03-24] MEDS ORDERED: LR 1,000 ML IV ONE (06:43)
--- NOTE | 2018-03-24 07:46 | POSTANESTH ---
Post Anesthetic Evaluation Cardiovascular Status: Similar to Pre-Op Cond (Pt needs to F/U with PCP re: BP within the next 4 weeks. He should take his home BP machine with him for calibration. Pt will take his 5 mg PO lisinopril in PACU.) Respiratory Status: Normal, Stable Level of Consciousness/Mental Status: Can Participate in Eval, Moderately Sleepy Pain Control: Adequate, Prn Tx Ordered Nausea/Vomiting Control: Adequate, Prn Tx Ordered Complications Possibly Related to Anesthesia: None Noted
--- NOTE | 2018-03-24 07:50 | PDANEPAE ---
ANE History of Present Illness 72 yo male with multiple medical problems for EGD with possible dilation. ANE Past Medical History - Cardiovascular History Hx Hypertension: Yes Hx Arrhythmias: Yes Hx Chest Pain: No Hx Coronary Artery / Peripheral Vascular Disease: Yes Hx CHF / Valvular Disease: No Hx Palpitations: No Cardiovascular History Comment: hx of v-tach- full core 2009. hyperlipidemia. CAD with stent x1. CHF. complete av heart block- icd - Pulmonary History Hx COPD: No Hx Asthma/Reactive Airway Disease: No Hx Recent Upper Respiratory Infection: No Hx Oxygen in Use at Home: Yes O2 in Use at Home (L/minute): 2l at [facility] Hx Sleep Apnea: Yes Sleep Apnea Screening Result - Last Documented: Positive Pulmonary History Comment: central sleep apnea - Neurologic History Hx Cerebrovascular Accident: No Hx Seizures: No Hx Dementia: No - Endocrine History Hx Diabetes: No Hypothyroid: Yes Obesity: no - Renal History Hx Renal Disorders: Yes Renal History Comment: 04/2017 greenlight laser with [facility] at [facility]. hx of right nephrectomy. UDS procedure done 02/03/17. recently taken off furosemide d/t creatinine levels. enlarged prostate. 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 1994 renal ca- with nephrectomy - Congenital Disorder History Hx Congenital Disorders: No - GI History GERD: moderate Hx Gastrointestinal Disorders: Yes Gastrointestinal History Comment: reflux. 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 hx of EGD's with dilation almost yearly. - Other Health History Other Health History: wears glasses - Chronic Pain History Chronic Pain: No - Surgical History Prior Surgeries: 05/21/17 greenlight laser with Rusty. ESOPHAGEAL DILATION . 2017 cardiac ablation. 2016 cardiac ablation x2. right knee surgery 2016. 2015 pacemaker placed. 2014 icd. 2003 cardiac stent. right nephrectomy d/t renal ca. g tube placed when he had tongue ca. lucas. left knee surgery- meniscus tear. ing hernia repair. tonsillectomy. ANE Review of Systems Review of Systems: - Exercise capacity METS (RN): 4 METS - Systems Gastrointestinal: Reports: other (difficulty swallowing - h/o esophageal stricture) - Pacemaker Pacemaker Type: Permanent Pacer/Defib Pacemaker [employer]: [employer] Pacemaker Model: a Quad XT TWISTER OPERATOR-D Pacemaker Mode: DDDR Pacemaker Set Rate: 60 Date Pacemaker Last Checked: 01/01/18 ANE Patient History - Allergies Allergies/Adverse Reactions: ciprofloxacin Allergy (Verified 03/23/18 17:22) not compatible w/Amiodarone, midazolam [From Versed] Allergy (Verified 03/24/18 06:50) Vomiting Sulfa (Sulfonamide Antibiotics) [Sulfa(Sulfonamide Antibiotics)] Allergy ( Verified 03/23/18 17:22) Unknown - Home Medications Home Medications: Levothyroxine [Synthroid 125 mcg (*)] 11/30/14 [Last Taken 03/23/18] Acetaminophen [Tylenol ES 500 mg (*)] PO PRN 12/15/16 [Last Taken 03/20/18] Carvedilol [Coreg (*)] BID 12/15/16 [Last Taken 03/23/18] Lisinopril [Zestril 5 mg (*)] 10 12/15/16 [Last Taken 03/23/18] Aspirin [Aspirin 325 mg (*)] 02/03/17 [Last Taken 03/23/18] Mexiletine HCl [Mexitil] TID 02/03/17 [Last Taken 03/24/18 06:00] Vitamin D3 2000 units tab (OTC) 02/03/17 [Last Taken 03/23/18] DEXILANT 03/23/18 [Last Taken 03/23/18] Furosemide 03/23/18 [Last Taken 03/23/18] - NPO status NPO Since - Liquids (Date): 03/23/18 NPO Since - Liquids (Time): 22:00 NPO Since - Solids (Date): 03/23/18 NPO Since - Solids (Time): 20:00 - Anes Hx Anes Hx: no prior problems - Smoking Hx Smoking Status: Never smoked - Family Anes Hx Family Anes Hx: neg - N/A Family Hx Anesthesia Complications: none ANE Labs/Vital Signs - Labs - BMP BUN: 34 Creatinine: 2 - Vital Signs Blood Pressure: 190/110 (Pt says this is highly unusual. Recommend F/U with PCP. ) Heart Rate: 68 Respiratory Rate: 16 O2 Sat (%): 91 Height: 182.88 cm Weight: 70.76 kg ANE Physical Exam - Airway Mallampati Score: Class 2 - Pulmonary Pulmonary: clear to auscultation - Cardiovascular Cardiovascular: regular rate and rhythym - ASA Status ASA Status: IV ANE Anesthesia Plan Anesthesia Plan: GA with mask Total IV Anesthesia: Yes
[2018-03-24] MEDS ORDERED: INDOMETHACIN 50 MG SUPP PR PRN (08:09)
--- NOTE | 2018-03-24 08:09 | PDGENHP ---
History & Physical Chief Complaint: dysphagia History of Present Illness: 72 year old male presents for evaluation of dysphagia. Pertinent Past, Social, Family History: PMHx: HTN, RCC s/p nephrectomy Relevant Physical Exam: HEENT: anicteric. CV: RRR +s1s2. Lungs: CTAB. Abd: soft, nt, + bs Cardiorespiratory Assessment: ASA 3
[2018-03-24] MEDS ORDERED: LIDOCAINE 2% 2 ML INJ ONE (08:11)
[2018-03-24] MEDS ORDERED: PROPOFOL 200 MG/20 ML VIAL ONE ×2 (08:11)
[2018-03-24] MEDS ORDERED: NS 500 ML IV SCH (08:15)
[2018-03-24] MEDS ORDERED: ACETAMINOPHEN 500 MG TAB PO PRN (08:34)
[2018-03-24] MEDS ORDERED: ALBUTEROL 3 ML DEYVIAL IH PRN (08:34)
--- NOTE | 2018-03-24 08:54 | GIREPORT ---
[facility] - Endoscopy Department Patient Name: Jean Lee Procedure Date: 03/24/2018 8:09 AM Patient Type: Outpatient Attending MD/ ER Physician: Hira Morrow MD Procedure: Upper GI endoscopy Indications: Dysphagia Patient Profile: 72 year old male presents for evaluation of dysphagia. Providers: Hira Morrow MD Medicines: Monitored Anesthesia Care Complications: No immediate complications. Estimated blood loss: Minimal. Description of Procedure: After obtaining informed consent, the endoscope was passed under direct vision. Throughout the procedure, the patient's blood pressure, pulse, and oxygen saturations were monitored continuously. The Endoscope was intro duced through the mouth, and advanced to the second part of duodenum. The [facility] er GI endoscopy was accomplished without difficulty. The patient tolerated th e procedure well. Findings: Biopsies were taken with a cold forceps in the middle third of the esop hagus for histology for eosinophilic esophagitis. The Z-line was irregular and was found at the gastroesophageal junction . Biopsies were taken with a cold forceps for histology. A TTS dilator was passed through the scope. Empiric dilation with a 15-16.5-18 mm balloon dilator was performed to 18 mm in the lower third of the esophagus and pulled through the whole esophagus. Patchy mildly erythematous mucosa was found in the gastric body and in the gastric antrum. Biopsies were taken with a cold forceps for histology. The examined duodenum was normal. Estimated Blood Loss: Estimated blood loss was minimal. Post Op Diagnosis: - Z-line irregular, at the gastroesophageal junction. Biopsied. - Erythematous mucosa in the gastric body and antrum. Biopsied. - Normal examined duodenum. - Biopsies were taken with a cold forceps for histology in the middle t hird of the esophagus. - Empiric dilation performed in the lower third of the esophagus. Recommendation: - Discharge patient to home (with escort). - Resume previous diet. - Continue present medications. - Await pathology results. - Follow up as needed. - Thank you for allowing me to participate in the care of your patient. Attending Participation: I personally performed the entire procedure. Hira Morrow MD Hira Morrow MD 03/24/2018 8:53:47 AM This report has been signed electronicallyHira Morrow MD Number of Addenda: 0 Note Initiated On: 03/24/2018 8:09 AM [email or web address]
[2018-03-24] MEDS ORDERED: LISINOPRIL 5 MG TAB PO SCH (09:00)
[2018-03-24 09:33] VITALS: BP 170/91
== END 2018-03-24 10:00 | disposition home or self-care (01) ==
LOC: FSGY 06:28
PROVIDERS: ATTEND Internal Medicine Gastroenterology
PROC: 0DB28ZX Excision of Middle Esophagus, Via Natural or Artificial Opening Endoscopic, Diagnostic (ICD-10-PCS; principal; 2018-03-24 08:00)
PROC: 0DB78ZX Excision of Stomach, Pylorus, Via Natural or Artificial Opening Endoscopic, Diagnostic (ICD-10-PCS; principal; 2018-03-24 08:00)
PROC: 0DB48ZX Excision of Esophagogastric Junction, Via Natural or Artificial Opening Endoscopic, Diagnostic (ICD-10-PCS; principal; 2018-03-24 08:00)
DX: R13.10 Dysphagia, unspecified (principal); I10 Essential (primary) hypertension; I25.10 Atherosclerotic heart disease of native coronary artery without angina pectoris; I50.9 Heart failure, unspecified; G47.31 Primary central sleep apnea; K21.9 Gastro-esophageal reflux disease without esophagitis; Z90.5 Acquired absence of kidney; Z85.528 Personal history of other malignant neoplasm of kidney; Z95.810 Presence of automatic (implantable) cardiac defibrillator; Z95.5 Presence of coronary angioplasty implant and graft
CPT/HCPCS: 43239; C1726; J2704

== ENCOUNTER → 2018-11-02 | Outpatient (CLI) | payer OTHER, MEDICARE | LOC: BHFA 16:15 | PROVIDERS: ATTEND Internal Medicine Interventional Cardiology | DX: I42.9 Cardiomyopathy, unspecified (principal) ==